=== PATIENT | male | born 1965 | race Caucasian/White ===

== ENCOUNTER 2020-08-16 09:14 | Day surgery (SDC) | payer OTHER | END 2020-08-16 09:40 | disposition home or self-care (01) | LOC: SDC-PAIN 09:14 | PROVIDERS: ATTEND Psychiatry & Neurology Pain Medicine | DX: Z53.9 Procedure and treatment not carried out, unspecified reason (principal) ==

== ENCOUNTER 2020-09-20 09:06 | Day surgery (SDC) | payer OTHER ==
[2020-09-20] MEDS ORDERED: Sodium Chloride 0.9(Preservative Free) 10 ML IJ ONE (09:07)
[2020-09-20] MEDS ORDERED: Depo-Medrol 40 MG/ML IM ONE (09:07)
[2020-09-20] MEDS ORDERED: Lactated Ringers 1,000 ML IV ONE (09:07)
[2020-09-20] MEDS ORDERED: DIPRIVAN 200 MG/20 ML IV ONE (09:07)
--- NOTE | 2020-09-20 11:49 | XRAY ---
Indication: Left L4-S1 transforaminal PADMINI. Intraoperative fluoroscopy provided for 28 seconds. 4 digital spot image submitted for interpretation demonstrates posterior needle tips projecting over the expected left L4 and L5 nerve roots. Small amount of contrast injected for needle tip placement. Correlate with intraoperative findings/report. Incidental bilateral L3-L4 facet screws.
--- NOTE | 2020-09-20 11:54 | XRAY ---
28 seconds of fluoroscopy was used in surgery for a left L4-L5 and L5-S1 transforaminal PADMINI.
== END 2020-09-20 10:50 | disposition home or self-care (01) ==
LOC: SDC-PAIN 09:06
PROVIDERS: ATTEND Psychiatry & Neurology Pain Medicine
DX: M54.16 Radiculopathy, lumbar region (principal); E11.22 Type 2 diabetes mellitus with diabetic chronic kidney disease; I13.0 Hypertensive heart and chronic kidney disease with heart failure and stage 1 through stage 4 chronic kidney disease, or unspecified chronic kidney disease; N18.9 Chronic kidney disease, unspecified; J44.9 Chronic obstructive pulmonary disease, unspecified
CPT/HCPCS: 64479; 64480; 72100; 77003; 82947; J1030; J2704; Q9966

== ENCOUNTER 2020-12-27 10:38 | Day surgery (SDC) | payer OTHER ==
[2020-12-27] MEDS ORDERED: Depo-Medrol 40 MG/ML IM ONE (10:39)
[2020-12-27] MEDS ORDERED: Sodium Chloride 0.9(Preservative Free) 10 ML IJ ONE (10:39)
[2020-12-27] MEDS ORDERED: DIPRIVAN 200 MG/20 ML IV ONE (13:13)
--- NOTE | 2020-12-27 13:52 | XRAY ---
Indication: Right L4-S1 transforaminal PADMINI. Intraoperative fluoroscopy provided for 1 minute 3 seconds. 5 digital spot image submitted for interpretation demonstrate posterior needle tips projecting over the expected right L4 and L5 nerve roots. Small amount of contrast injected for needle tip placement. Correlate with intraoperative findings/report. Incidental bilateral L3-L4 facet screws.
--- NOTE | 2020-12-27 13:54 | XRAY ---
1 minute and 3 seconds fluoroscopy time in surgery for right L4-S1 transforaminal PADMINI
[2020-12-27] MEDS ORDERED: Lactated Ringers 1,000 ML IV ONE (15:24)
== END 2020-12-27 13:45 | disposition home or self-care (01) ==
LOC: SDC-PAIN 10:38
PROVIDERS: ATTEND Psychiatry & Neurology Pain Medicine
DX: M54.16 Radiculopathy, lumbar region (principal); E11.9 Type 2 diabetes mellitus without complications; Z79.899 Other long term (current) drug therapy
CPT/HCPCS: 64483; 64484; 72100; 77003; 82947; J1030; J2704; Q9966

== ENCOUNTER 2021-01-26 07:54 | Day surgery (SDC) | payer OTHER ==
[2021-01-26] MEDS ORDERED: LIDOCAINE HCL 2% 100 MG/5 ML IJ ONE (07:55)
[2021-01-26] MEDS ORDERED: DIPRIVAN 200 MG/20 ML IV ONE (08:49)
[2021-01-26] MEDS ORDERED: Lactated Ringers 1,000 ML IV ONE (09:52)
--- NOTE | 2021-01-26 10:41 | XRAY ---
Indication: Bilateral L4-S1 MBB. Intraoperative fluoroscopy provided for 10 seconds. Single digital spot image submitted for interpretation demonstrate posterior needle tips projecting over the expected left and right L4-S1 nerve roots. Correlate with intraoperative findings/report. Incidental bilateral L3-L4 facet screws.
--- NOTE | 2021-01-26 12:23 | XRAY ---
10 seconds fluoroscopy time in surgery for bilateral L4-S1 MBB.
== END 2021-01-26 08:56 | disposition home or self-care (01) ==
LOC: SDC-PAIN 07:54
PROVIDERS: ATTEND Psychiatry & Neurology Pain Medicine
DX: M47.816 Spondylosis without myelopathy or radiculopathy, lumbar region (principal); I10 Essential (primary) hypertension; E11.9 Type 2 diabetes mellitus without complications; J44.9 Chronic obstructive pulmonary disease, unspecified; Z79.899 Other long term (current) drug therapy
CPT/HCPCS: 64493; 64494; 72020; 77002; 82947; J2704

== ENCOUNTER 2021-02-21 09:51 | Day surgery (SDC) | payer OTHER ==
[2021-02-21] MEDS ORDERED: BUPIVACAINE 0.5% VIAL IJ ONE (09:52)
[2021-02-21] MEDS ORDERED: Lactated Ringers 1,000 ML IV ONE (11:15)
[2021-02-21] MEDS ORDERED: DIPRIVAN 200 MG/20 ML IV ONE (11:31)
--- NOTE | 2021-02-21 12:37 | XRAY ---
Indication: Bilateral L4-S1 MBB. Intraoperative fluoroscopy provided for 8 seconds. Single digital spot image submitted for interpretation demonstrate posterior needle tips projecting over the expected left and right L4-S1 nerve roots. Correlate with intraoperative findings/report. Incidental bilateral L3-L4 facet screws.
--- NOTE | 2021-02-21 14:06 | XRAY ---
8 seconds of fluoroscopy was used in surgery for a bilateral L4-S1 MBB.
== END 2021-02-21 11:55 | disposition home or self-care (01) ==
LOC: SDC-PAIN 09:51
PROVIDERS: ATTEND Psychiatry & Neurology Pain Medicine
DX: M47.816 Spondylosis without myelopathy or radiculopathy, lumbar region (principal); I10 Essential (primary) hypertension; I25.10 Atherosclerotic heart disease of native coronary artery without angina pectoris; E11.9 Type 2 diabetes mellitus without complications; Z79.899 Other long term (current) drug therapy
CPT/HCPCS: 64493; 64494; 72020; 77002; 82947; J2704

== ENCOUNTER 2021-06-20 08:00 | Day surgery (SDC) | payer OTHER ==
[2021-06-20] MEDS ORDERED: DIPRIVAN 200 MG/20 ML IV ONE (10:05)
[2021-06-20] MEDS ORDERED: Lactated Ringers 1,000 ML IV ONE (10:32)
--- NOTE | 2021-06-20 11:53 | XRAY ---
Indication: Right L4-S1 RFA. Intraoperative fluoroscopy provided for 27 seconds. 3 digital spot image submitted for interpretation demonstrates posterior needle tips projecting over the expected right L4-S1 nerve roots. Correlate with intraoperative findings/report. Incidental bilateral L3-L4 facet screws.
--- NOTE | 2021-06-20 12:14 | XRAY ---
27 seconds fluoroscopy time in surgery for right L4-S1 RFA
== END 2021-06-20 10:36 | disposition home or self-care (01) ==
LOC: SDC-PAIN 08:00
PROVIDERS: ATTEND Psychiatry & Neurology Pain Medicine
DX: M47.816 Spondylosis without myelopathy or radiculopathy, lumbar region (principal); E11.42 Type 2 diabetes mellitus with diabetic polyneuropathy; Z79.899 Other long term (current) drug therapy
CPT/HCPCS: 72100; 77002; 82947; J2704

== ENCOUNTER 2021-07-04 08:15 | Day surgery (SDC) | payer OTHER ==
[2021-07-04] MEDS ORDERED: BUPIVACAINE 0.5% VIAL IJ ONE (08:16)
[2021-07-04] MEDS ORDERED: Depo-Medrol 40 MG/ML IM ONE (08:16)
[2021-07-04] MEDS ORDERED: Xylocaine 1% Vial 30 ML PF IJ ONE (08:16)
[2021-07-04] MEDS ORDERED: DIPRIVAN 200 MG/20 ML IV ONE (09:37)
--- NOTE | 2021-07-04 11:35 | XRAY ---
Indication: Left L4-S1 RFA. Intraoperative fluoroscopy provided for 47 seconds. 4 digital spot image submitted for interpretation demonstrates posterior needle tips projecting over the expected left L4-S1 nerve roots. Correlate with intraoperative findings/report. Incidental bilateral L3-L4 facet screws.
--- NOTE | 2021-07-04 11:38 | XRAY ---
47 seconds of fluoroscopy was used in surgery for a left L4-S1 RFA.
== END 2021-07-04 10:10 | disposition home or self-care (01) ==
LOC: SDC-PAIN 08:15
PROVIDERS: ATTEND Psychiatry & Neurology Pain Medicine
DX: M47.816 Spondylosis without myelopathy or radiculopathy, lumbar region (principal); I10 Essential (primary) hypertension; Z79.899 Other long term (current) drug therapy
CPT/HCPCS: 64635; 64636; 72100; 77002; 82947; J1030; J2001; J2704